=== PATIENT | female | born 1965 | race Caucasian/White ===

== ENCOUNTER 2022-05-27 09:26 | Emergency (ER) | payer BC ==
[2022-05-27] MEDS ORDERED: Ondansetron 4 MG/2 ML SDV IVPUSH ONE (09:45)
[2022-05-27] MEDS ORDERED: Promethazine 25 MG in Sodium Chloride 0.9% 50 ML IV ONE (11:01)
[2022-05-27] MEDS ORDERED: Sodium Chloride 0.9% 1,000 ML IV ONE (11:01)
[2022-05-27] MEDS ORDERED: Promethazine 25 MG/ML SDV ONE (11:14)
[2022-05-27] MEDS ORDERED: LORazepam 1 MG Tab PO ONE (13:17)
[2022-05-27 14:31] LABS: CORONAVIRUS COVID-19 NAA NEGATIVE (NEGATIVE)
[2022-05-27 15:43] VITALS: BP 122/76; PULSE 92
== END 2022-05-27 13:40 | disposition home or self-care (01) ==
LOC: JD.ED 09:26
DX: A05.9 Bacterial foodborne intoxication, unspecified (principal); R11.2 Nausea with vomiting, unspecified; Z91.013 Allergy to seafood; Z20.822 Contact with and (suspected) exposure to COVID-19
CPT/HCPCS: 0241U; 36415; 80053; 83690; 83735; 85025; 86140; 96361; 96365; 96375; 99284; A9270; J2405; J2550; J3490; J7030; 99283